=== PATIENT | female | born 1990 | race Two or more races ===

== ENCOUNTER 2021-03-10 17:02 | Emergency (ER) | payer SELFPAY ==
[~2021-03-10] VITALS: Ht 160 cm; Wt 72.6 kg
[2021-03-10] MEDS ORDERED: traMADol HCL 50 MG TAB PO ONE (19:00)
[2021-03-10 19:10] VITALS: BP 127/82
== END 2021-03-10 19:11 | disposition home or self-care (01) ==
LOC: ER 17:02
DX: S93.492A Sprain of other ligament of left ankle, initial encounter (principal); S39.012A Strain of muscle, fascia and tendon of lower back, initial encounter; V49.59XA Passenger injured in collision with other motor vehicles in traffic accident, initial encounter; Y93.89 Activity, other specified; Y92.488 Other paved roadways as the place of occurrence of the external cause; Y99.8 Other external cause status
CPT/HCPCS: 73610